=== PATIENT | female | born 1960 | race Caucasian/White ===

== ENCOUNTER → 2016-07-19 | Outpatient (CLI) | payer BC ==
--- NOTE | 2016-07-19 12:38 | MA ---
Screening Digital Mammogram With iCAD Analysis Clinical Indications: Routine screening. Technique: Standard cephalocaudal and mediolateral oblique projections were obtained. This examinatio n was processed by the iCAD computer-aided detection system. Comparison: March 2015, September 2011, August 2009. Breast density: Type B; Scattered fibroglandular densities. Findings: CAD was reviewed. There is possible developing architectural change noted in the outer righ t breast on the craniocaudal view. No suspicious microcalcifications are seen. The left breast is sta ble in appearance. Impression: Possible developing right breast architectural change requires further evaluation. BI-RAD S 0 Recommendation: Spot compression assessment of the right breast with ultrasound suggested if the abno rmality persists on diagnostic evaluation. [facility] will send a result letter to the patient. Negative mammography should not preclude additional workup of a clinically suspicious finding. The patient's information is entered into a reminder system with a target due date for her next mammo gram.
== END ==
LOC: CIMAGING 08:51
PROVIDERS: ATTEND Family Medicine
DX: Z12.31 Encounter for screening mammogram for malignant neoplasm of breast (principal)
CPT/HCPCS: G0202

== ENCOUNTER → 2016-07-21 | Outpatient (CLI) | payer BC ==
--- NOTE | 2016-07-21 15:20 | DX ---
DEXA Bone Mineral Densitometry Clinical Indications: Perimenopausal, screening for osteoporosis Comparison: None Technique: Bone Mineral Densitometry (BMD) by Dual Energy X-Ray Absorptiometry (DEXA) was performed utilizing the Panaya scanner. The lumbar spine was evaluated in the AP projection. The bilat eral hips and forearm were evaluated in the AP projection. Vertebral fracture assessment was also pe rformed. AP Lumbar Spine: The L1, L2, L3 and L4 vertebral bodies were evaluated. BMD: 1.610 gm/cm2 T-score: 3.4 SD Z-score: 3.7 SD AP Left Hip: Neck BMD: 1.408 gm/cm2 T-score: 2.7 SD Z-score: 3.4 SD AP Right Hip: Total BMD: 1.395 gm/cm2 T-score: 3.1 SD Z-score:3.4 SD AP Left Forearm, 06/28: BMD: 0.936 gm/cm2 T-score: 0.7 SD Z-score: 1.0 SD Vertebral Fracture Assessment: No significant fracture deformity. Conclusion: Considering the lowest measured site, the patient is super normal. It is therefore impor tant to exclude a diffuse sclerotic process. Recommend obtaining AP and lateral lumbar spine x-rays a nd an AP pelvis for further evaluation. It may also be worthwhile to check the patient's serum bone a lkaline phosphatase level.
== END ==
LOC: BRMIMAGING 08:31
PROVIDERS: ATTEND Family Medicine
DX: Z13.820 Encounter for screening for osteoporosis (principal); Z78.0 Asymptomatic menopausal state

== ENCOUNTER → 2016-07-22 | Outpatient (CLI) | payer BC ==
--- NOTE | 2016-07-22 10:24 | MA ---
Diagnostic Digital Right Mammogram graduate History: Possible new architectural distortion outer right breast. Comparison: June 2016, March 2015. Technique: A true lateral view and 5 spot views of the right breast. Breast Density: 2 Findings: Architectural distortion does not persist and was related to overlapping normal parenchymal structures. Impression: Negative outer right breast. BI-RADS: Category 1 . Recommendation: Return to screening of both breasts in June 2017. Results and recommendation were communicated to the patient at the time of the examination.
== END ==
LOC: BRMIMAGING 09:28
PROVIDERS: ATTEND Family Medicine
DX: R92.8 Other abnormal and inconclusive findings on diagnostic imaging of breast (principal)
CPT/HCPCS: G0206